=== PATIENT | male | born 1955 | race Caucasian/White ===

== ENCOUNTER 2021-07-07 09:41 | Emergency (ER) | payer OTHER ==
[~2021-07-07] VITALS: Ht 180.3 cm; Wt 103.4 kg
[2021-07-07] MEDS ORDERED: ZETIA10 MG (09:52)
[2021-07-07] MEDS ORDERED: AMOX250 (09:52)
== END 2021-07-07 10:38 | disposition home or self-care (01) ==
LOC: ER 09:41 → EMR PED 09:41 → ER 10:07
DX: J06.9 Acute upper respiratory infection, unspecified (principal)

== ENCOUNTER 2022-07-18 12:49 | Outpatient (CLI) | payer OTHER ==
[~2022-07-18 12:49] MED LIST: AMOX250; ZETIA10 MG
== END 2022-07-18 12:58 | disposition home or self-care (01) ==
LOC: MRI 12:49
PROVIDERS: ATTEND Physical Medicine & Rehabilitation
DX: M54.2 Cervicalgia (principal); M54.12 Radiculopathy, cervical region
CPT/HCPCS: 72141

== ENCOUNTER 2022-12-12 12:13 | Outpatient (CLI) | payer OTHER | END 2022-12-12 12:18 | disposition home or self-care (01) | LOC: SONOGRAMA 12:13 | PROVIDERS: ATTEND Otolaryngology | DX: R22.1 Localized swelling, mass and lump, neck (principal) ==

== ENCOUNTER 2023-03-25 07:51 | Outpatient (CLI) | payer OTHER | END 2023-03-25 08:21 | disposition home or self-care (01) | LOC: MRI 07:51 | DX: M54.50 Low back pain, unspecified (principal) | CPT/HCPCS: 72148 ==

== ENCOUNTER 2025-04-11 05:39 | Day surgery (SDC) | payer OTHER ==
[2025-04-04 09:01] VITALS: BP 136/87
[2025-04-04 10:25] LABS: PH,URINE 5.5 (5.0-8.0); URINE APPEARANCE Clear; URINE BILIRRUBIN Negative (NEGATIVE); URINE BLOOD Negative; URINE COLOR Yellow; URINE GLUCOSE Negative (NEGATIVE); URINE KETONE Negative (NEGATIVE); URINE LEUKOCYTE Negative; URINE NITRATE Negative; URINE PROTEIN Negative (NEGATIVE); URINE UROBILINOGEN 0.2 E.U./dl
[2025-04-04 10:30] LABS: URINE BACTERIA 8.5 uL (0.0-1933)
[2025-04-04 10:36] LABS: EOS # 0.33 (0.04-0.54); EOS % 4.1 % (0.7-7.0); HEMATOCRIT 45.2 % (40.1-51.0); HEMOGLOBIN 15.8 g/dL (13.7-17.5); LYMPH # 1.14 (1.18-3.74); LYMPH % 14.2 % (19.3-53.1); MONO # 0.89 (0.24-0.82); MONO % 11.1 % (4.7-12.5); NEUT # 5.52 (1.56-6.13); NEUT % 68.7 % (34.0-71.1); PLATELET COUNT 237 K/uL (163-369); RED BLOOD COUNT 5.26 M/uL (4.63-6.08); RED CELL DISTRIBUTION WIDTH 12.1 % (11.6-14.4)
[2025-04-04 10:50] LABS: URINE WBC 0.7 uL (0.0-23.2)
[2025-04-04 11:11] LABS: PARTIAL THROMBOPLASTIN TIME 27.6 SECONDS (22.0-34.0); PROTHROMBIN TIME 10.9 SECONDS (9.0-11.5)
[2025-04-04 11:30] LABS: ALBUMIN 3.8 gm/dL (3.4-5.0); BILIRUBIN TOTAL 1.25 mg/dL (0.3-1.2); CALCIUM 9.1 mg/dL (8.5-10.1); CREATININE SERUM 0.93 mg/dL (0.70-1.30); GFR 81.04; GLOBULINA 3.2 G/DL (2.4-3.5); POTASSIUM 4.55 mEq/L (3.5-5.1)
[~2025-04-11] VITALS: Ht 180.3 cm; Wt 110.2 kg
[~2025-04-11 05:39] MED LIST changes: +ADCIRCA20 MG; +AZELASTINE HCL6 ML; +COZAAR25 MG PO; +LIVALO4 MG PO; +TRIAMCINOLONE A15 GM; +[UNRECOGNIZED DRUG - OTHER]
[2025-04-11] MEDS ORDERED: CEFAZOLIN SODIUM 1,000 MG VIAL ONE (06:51)
[2025-04-11] MEDS ORDERED: BUPIVACAINE HCL/Mpf 0.5% 10ML VIAL ONE (07:04)
[2025-04-11] MEDS ORDERED: MORPHINE SULFATE 4 MG/ML VIAL IV ONE (10:25)
== END 2025-04-11 11:55 | disposition home or self-care (01) ==
LOC: CIR.AMB 05:39
PROVIDERS: ATTEND Surgery
DX: K40.30 Unilateral inguinal hernia, with obstruction, without gangrene, not specified as recurrent (principal)